=== PATIENT | female | born 1950 | race Caucasian/White ===

== ENCOUNTER 2016-11-30 06:49 | Emergency (ER) | payer OTHER ==
--- NOTE | 2016-11-30 07:59 | ED HEAD/FACIAL INJ COMPLAINT ---
History of Present Illness General Chief Complaint: Suture Removal/Wound Recheck Stated Complaint: WOUND CHECK AFTER ABCESS REMOVAL,OBJECT FELL ON NO Source: patient Exam Limitations: no limitations Vital Signs & Intake/Output Vital Signs & Intake/Output Vital Signs Date Time Temp Pulse Resp B/P B/P Pulse O2 O2 Flow FiO2 Mean Ox Delivery Rate 11/30 717 97.4 77 16 136/71 97 Room Air Allergies Coded Allergies: Tetanus Vaccines and Toxoid (Severe, ANAPHYLAXIS 11/30/16) morphine (Severe, respiratory depression 11/30/16) Penicillins (Intermediate, rash 11/30/16) Sulfa (Sulfonamide Antibiotics) (Intermediate, rash 11/30/16) Tetracyclines (Intermediate, rash 11/30/16) codeine (Intermediate, rash/swelling 11/30/16) Triage Note: PT TO ED S/P HAVING A SMALL CACTUS PLANT FALL OUT OF A CABINET AND HIT HER NOSE. STATES SHE HAD AN ABCESS THAT WAS HEALING IN THE SAME SPOT. 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 Triage Nurses Notes Reviewed? yes Onset: Abrupt Severity: moderate Location: NOSE Method of Injury: direct blow, incised Loss of Consciousness: no loss of consciousness Associated Symptoms: BLEEDING HPI: Patient presents for evaluation of a wound to the nose it occurred yesterday after a small cactus fell off of a shelf striking her in the nose. She was just recently treated and essentially healed from a small cyst on her nose in the very same area. Since she currently takes Coumadin she states she had quite a lot of bleeding but she held pressure to the wound and the bleeding stopped. She was concerned about the need for suturing. Past History Travel History Traveled to [place] past 21 day No Medical History Any Pertinent Medical History? see below for history Cardiovascular: hypertension, mitral valve replacement Surgical History Surgical History: none (SEE ABOVE), SEE ABOVE Psychosocial History What is your primary language Danish Tobacco Use: Never used Family History Hx Contributory? No Review of Systems Review of Systems Constitutional: Reports: no symptoms. EENTM: Reports: no symptoms. Respiratory: Reports: no symptoms. Cardiovascular: Reports: no symptoms. GI: Reports: no symptoms. Genitourinary: Reports: no symptoms. Musculoskeletal: Reports: no symptoms. Skin: Reports: see HPI. Neurological/Psychological: Reports: no symptoms. Hematologic/Endocrine: Reports: no symptoms. Immunologic/Allergic: Reports: no symptoms. All Other Systems: Reviewed and Negative Physical Exam Physical Exam General Appearance: SEE BELOW Cranial Nerves: SEE BELOW Comments: Gen.: Well-nourished, well-developed, no acute respiratory distress. Head: Normocephalic, atraumatic. Eyes: Normal inspection bilaterally Ears: Normal inspection bilaterally Nose: Normal inspection Face: Ovoid avulsion laceration of the nasal bridge with no active bleeding or foreign bodies. No associated soft tissue swelling or ecchymoses. The wound is approximately 3 mm x 4 mm. Throat/mouth : Moist mucosa Neck: Supple, full range of motion, no goiter Lungs: Quiet respirations Back: Normal range of motion Abdomen: Soft, nontender, nondistended, normal bowel sounds Extremities: Normal range of motion grossly, Neurologic: Cranial nerves grossly intact, speech is clear, gait is stable Skin: warm and dry Psychiatric: Calm, cooperative, no apparent delusions or hallucinations Progress Differential Diagnosis: NASAL FRACTURE, CUTANEOUS FOREIGN BODY Plan of Care: Bacitracin and dressing Comments: Patient's laceration is relatively wide based avulsion laceration that cannot be sutured. Departure Departure Disposition: HOME OR SELF CARE Condition: Stable Clinical Impression Primary Impression: Laceration of nose Qualifiers: Encounter type: initial encounter Qualified Code: S01.21XA - Laceration without foreign body of nose, initial encounter Referrals: FRANKIE SALDANA,SUMMER Mcdaniels (PCP/Family) Additional Instructions: Bacitracin and bandage until wound begins to heal. Follow-up with your primary care doctor if any signs of infection. Return to the emergency department if any sudden worsening. Thank you for choosing the [facility] Emergency Department for your care. It was a pleasure to serve you today. Fabrice Govea M.D. [facility] Departure Forms: Customer Survey General Discharge Information
[2016-11-30] MEDS ORDERED: COUMADIN2.5 M1 PO ×2 (08:02→08:03)
[2016-11-30] MEDS ORDERED: VITAMIN D2000 UNIT PO (08:03)
[2016-11-30] MEDS ORDERED: FLECAINIDE ACE100 M1 PO (08:04)
[2016-11-30] MEDS ORDERED: FUROSEMIDE40 M1 PO (08:04)
[2016-11-30] MEDS ORDERED: AZATHIOPRINE50 M1 PO (08:04)
[2016-11-30] MEDS ORDERED: ASPIRIN81 M4 PO (08:05)
[2016-11-30] MEDS ORDERED: SPIRONOLACTONE25 M1 PO (08:05)
[2016-11-30] MEDS ORDERED: ATENOLOL50 M1 PO (08:05)
[2016-11-30] MEDS ORDERED: ATORVASTATIN CA20 M1 PO (08:06)
== END 2016-11-30 08:11 ==
LOC: ERH 06:49
DX: S01.21XA Laceration without foreign body of nose, initial encounter (principal); W20.8XXA Other cause of strike by thrown, projected or falling object, initial encounter; Y93.9 Activity, unspecified; Y92.9 Unspecified place or not applicable
CPT/HCPCS: 99282

== ENCOUNTER 2018-01-15 04:26 | Emergency (ER) | payer OTHER ==
[~2018-01-15] VITALS: Ht 160 cm; Wt 84.8 kg
[~2018-01-15 04:26] MED LIST: ASPIRIN81 M4 PO; ATENOLOL50 M1 PO; ATORVASTATIN CA20 M1 PO; AZATHIOPRINE50 M1 PO; COUMADIN2.5 M1 PO; FLECAINIDE ACE100 M1 PO; FUROSEMIDE40 M1 PO; SPIRONOLACTONE25 M1 PO; VITAMIN D2000 UNIT PO
--- NOTE | 2018-01-15 04:38 | ED GENERAL ADULT ---
History of Present Illness General Chief Complaint: General Adult Stated Complaint: NERVE IMPINCHMENT PAIN Source: patient Exam Limitations: no limitations Vital Signs & Intake/Output Vital Signs & Intake/Output Vital Signs Date Time Temp Pulse Resp B/P B/P Pulse O2 O2 Flow FiO2 Mean Ox Delivery Rate 01/15 0439 97.3 89 16 188/81 99 Room Air Allergies Coded Allergies: ASHELY Inhibitors (Severe, RASH 11/30/16) Tetanus Vaccines and Toxoid (Severe, ANAPHYLAXIS 11/30/16) enoxaparin (From LOVENOX) (Severe, HIVES 11/30/16) morphine (Severe, respiratory depression 11/30/16) Penicillins (Intermediate, rash 11/30/16) Sulfa (Sulfonamide Antibiotics) (Intermediate, rash 11/30/16) Tetracyclines (Intermediate, rash 11/30/16) codeine (Intermediate, rash/swelling 11/30/16) Reconcile Medications Aspirin (Aspirin*) 81 MG TAB.CHEW 1 TAB PO DAILY HEART HEALTH (Reported) Atenolol 50 MG TABLET 1 TAB PO DAILY HEART (Reported) Atorvastatin Calcium 20 MG TABLET 1 TAB PO DAILY CHOLESTEROL (Reported) Azathioprine 50 MG TABLET 1 TAB PO DAILY UNKNOWN (Reported) Baclofen 10 MG TABLET 1 TAB PO TID PRN MUSCLE SPASM Baclofen 10 MG TABLET 1 TAB PO TID PRN muscle spasm Cholecalciferol (Vitamin D3) (Vitamin D) 2,000 UNIT CAPSULE 1 CAP PO DAILY VITAMIN SUPPORT (Reported) Flecainide Acetate 100 MG TABLET 1 TAB PO BID UNKNOWN (Reported) Furosemide 40 MG TABLET 1 TAB PO BID WATER RETENTION (Reported) Oxycodone HCl/Acetaminophen (Percocet 5-325 MG Tablet) 5 MG-325 MG TABLET 1 TAB PO 4XDP PRN PAIN eight...[id number] Spironolactone 25 MG TABLET 1 TAB PO DAILY WATER RETENTION (Reported) Warfarin Sodium (Coumadin) 2.5 MG TABLET 1.5 TAB PO Th BLOOD THINNER ( Reported) Warfarin Sodium (Coumadin) 2.5 MG TABLET 2 TAB PO SuMoTuWeFrSa BLOOD THINNER (Reported) Triage Nurses Notes Reviewed? yes Onset: Gradual Duration: day(s): Timing: recent history Injury Environment: home Severity: mild Modifying Factors: Improves With: rest. Worsens With: movement. Associated Symptoms: lower back pain HPI: 67 yo woman h/o back pain, h/o st sanaz valve on coumadin, presents with 2-3 days of lower back pain. "I have a pinched nerve... and tonight the pain got worse... it really hurts.... I couldn't sleep." She notes that she is otherwise well, is able to ambulate, without significant radicular symptoms. Past History Travel History Traveled to [place] past 21 day No Medical History Any Pertinent Medical History? see below for history Cardiovascular: hypertension, mitral valve replacement Surgical History Surgical History: none (SEE ABOVE), SEE ABOVE Psychosocial History What is your primary language [place] Family History Hx Contributory? No Review of Systems Review of Systems Constitutional: Reports: no symptoms. EENTM: Reports: no symptoms. Respiratory: Reports: no symptoms. Cardiovascular: Reports: no symptoms. GI: Reports: no symptoms. Genitourinary: Reports: no symptoms. Musculoskeletal: Reports: no symptoms. Skin: Reports: no symptoms. Neurological/Psychological: Reports: no symptoms. Hematologic/Endocrine: Reports: no symptoms. Immunologic/Allergic: Reports: no symptoms. All Other Systems: Reviewed and Negative Physical Exam Physical Exam General Appearance: well developed/nourished, mild distress Head: atraumatic, normal appearance Eyes: Bilateral: normal appearance. Ears, Nose, Throat: normal pharynx, normal ENT inspection Neck: normal inspection, supple, full range of motion Respiratory: normal breath sounds, chest non-tender, no respiratory distress, quiet respiration Cardiovascular: regular rate/rhythm Gastrointestinal: normal bowel sounds, soft, non-tender, no organomegaly Back: normal inspection, muscle spasm, no vertebral tenderness, left lower lumbar tenderness to palpation. Extremities: normal inspection, normal capillary refill, normal range of motion, no edema Neurologic/Psych: no motor/sensory deficits, awake, alert, oriented x 3 Skin: intact, normal color, warm/dry Core Measures ACS in differential dx? No CVA/TIA Diagnosis: No Sepsis Present: No Sepsis Focused Exam Completed? No Progress Differential Diagnoses I considered the following diagnoses in my evaluation of the patient: muscle spasm vs other. Plan of Care: Current Medications Sig/Romulo Start time Last Medication Dose Stop Time Status Admin Oxycodone/ 1 TAB ONCE ONE 01/15 0515 UNVr 01/15 Acetaminophen 01/15 0516 0517 (Percocet) Initial ED EKG: none Departure Departure Disposition: HOME OR SELF CARE Condition: Stable Clinical Impression Primary Impression: Back pain Referrals: Nirmal SALDANA,Navdeep Mcdaniels (PCP/Family) Departure Forms: Customer Survey General Discharge Information Prescriptions: Current Visit Scripts Baclofen 1 TAB PO TID PRN MUSCLE SPASM #30 TAB Oxycodone HCl/Acetaminophen (Percocet 5-325 MG Tablet) 1 TAB PO 4XDP PRN PAIN #8 TAB eight...[id number] Baclofen 1 TAB PO TID PRN muscle spasm #30 TAB Critical Care Note Critical Care Note Critical Care Time: non-applicable
[2018-01-15 04:39] VITALS: BP 188/81
[2018-01-15] MEDS ORDERED: BACLOFEN10 M1 PO ×2 (05:13→05:15)
[2018-01-15] MEDS ORDERED: PERCOCET 5-3251 EACH PO ×2 (05:13→05:15)
== END 2018-01-15 05:18 ==
LOC: ERH 04:26
DX: M54.5 Low back pain (principal)